=== PATIENT | male | born 1990 | race Caucasian/White ===

== ENCOUNTER 2016-11-23 21:59 | Emergency (ER) | payer OTHER ==
[~2016-11-23] VITALS: Ht 177.8 cm; Wt 73.0 kg
[~2016-11-23 21:59] MED LIST: LEXA10TA PO
[2016-11-23 22:17] VITALS: BP 132/77; PULSE 110; RESP 16; TEMP 97.6; O2SAT 100
--- NOTE | 2016-11-23 22:47 | PD ---
HPI Chief Complaint: Medical Clearance Time Seen by Provider: 22:42 Travel History International Travel<30 days: No Contact w/Intl Traveler<30days: No Traveled to known affect area: No History of Present Illness HPI Patient is a 26-year-old male presents emergency Department with law enforcement for evaluation following an altercation with police and his father. According to reports the patient was involved in an altercation with his father tonight and police were called. The patient apparently resisted arrest and had to be tased. The patient complains only of same anxiety at this time. He states he is feeling like he needs something to help calm him down. Patient has no physical complaints at this time. Denies any chest pain shortness of breath abdominal pain nausea vomiting. States he was tased in the back. [facility] Past Medical History Anxiety: Yes Depression: Yes Past Surgical History Surgical History: No Previous Surgery Social History Alcohol Use: Yes Tobacco Use: No Substance Use: Yes (POT OCC) Allergies-Medications (Allergen,Severity, Reaction): Coded Allergies: No Known Allergies (Unverified , 01/22/16) Reported Meds & Prescriptions Reported Meds & Active Scripts Active Reported Lexapro (Escitalopram Oxalate) 10 Mg Tab 10 Mg PO DAILY Review of Systems Except as stated in HPI: all other systems reviewed are Neg Physical Exam Narrative GENERAL: Well-developed well-nourished no obvious distress SKIN: Focused skin assessment warm/dry. Small superficial excoriations to the left before meals. Otherwise no skin breakdown seen. Back examination no skin breakdown seen. No puncture wounds seen. HEAD: Atraumatic. Normocephalic. EYES: Pupils equal and round. No scleral icterus. No injection or drainage. ENT: No nasal bleeding or discharge. Mucous membranes pink and moist. NECK: Trachea midline. No JVD. CARDIOVASCULAR: Regular rate and rhythm. No murmur appreciated. RESPIRATORY: No accessory muscle use. Clear to auscultation. Breath sounds equal bilaterally. GASTROINTESTINAL: Abdomen soft, non-tender, nondistended. Hepatic and splenic margins not palpable. MUSCULOSKELETAL: No obvious deformities. No clubbing. No cyanosis. No edema. NEUROLOGICAL: Awake and alert. No obvious cranial nerve deficits. Motor grossly within normal limits. Normal speech. PSYCHIATRIC: Appropriate mood and affect; insight and judgment normal. Data Data Last Documented VS Vital Signs Date Time Temp Pulse Resp B/P (MAP) Pulse Ox O2 Delivery O2 Flow Rate FiO2 11/23/16 22:17 97.6 110 16 132/77 (95) 100 MDM Medical Decision Making Medical Screen Exam Complete: Yes Emergency Medical Condition: No Differential Diagnosis Muscle aches, Taser, poor social circumstance, significant medical illness highly unlikely. Narrative Course Patient roomed in emergency department, he states he is feeling fairly anxious and depressed. This time there is no medical indication to keep him here, if suicidal and assessment in group home he can be placed on suicide precautions. He is stable for discharge and incarceration. Diagnosis Primary Impression: Medical clearance for incarceration Additional Instructions: Patient denying suicidal ideation to me, if endorses suicidal ideation in group home recommend placing on suicide precautions. There is still suicidal at time of release he can return to the emergency department under [place] act for evaluation. Disposition: [address] LAW ENFORCEMNT Condition: Stable Himanshu Frye MD Nov 23, 2016 22:46
== END 2016-11-23 23:15 ==
LOC: NEDAMB 21:59
DX: F41.9 Anxiety disorder, unspecified (principal); F32.9 Major depressive disorder, single episode, unspecified
CPT/HCPCS: 99281